=== PATIENT | male | born 1955 | race Two or more races ===

== ENCOUNTER 2019-09-30 00:52 | Emergency (ER) | payer MEDICARE, OTHER ==
[~2019-09-30] VITALS: Ht 170.2 cm
--- NOTE | 2019-09-30 01:05 | NUR ---
PT [id number] FROM [facility] FOR [facility]YCH PER EMS. PT C/O R WRIST PAIN. REDNESS. PT AAOX4, VSS, BREATHING EVEN AND UNLABORED ON RA W/ NAD NOTE. PT CONNECTED TO THE MONITOR AND POX.
[2019-09-30] MEDS ORDERED: diphenhydrAMINE HCL 25 MG CAPSULE PO ONE (01:30)
[2019-09-30] MEDS ORDERED: predniSONE 50 MG TABLET PO ONE (01:30)
[2019-09-30] MEDS ORDERED: predniSONE 20 MG TABLET ONE (01:43)
[2019-09-30] MEDS ORDERED: diphenhydrAMINE HCL 25 MG CAPSULE ONE (01:43)
--- NOTE | 2019-09-30 02:33 | NUR ---
CALLED [facility] FOR S TRANSPORT TO [facility] [id number] ETA TRIP # [id number]
--- NOTE | 2019-09-30 03:29 | NUR ---
REPORT GIVEN TO [facility]
--- NOTE | 2019-09-30 03:33 | NUR ---
REPORT GIVEN TO EMS. PT STABLE FOR TRANSFER
[2019-09-30 03:34] VITALS: BP 116/74
== END 2019-09-30 03:34 ==
LOC: ER 00:58
DX: R21 Rash and other nonspecific skin eruption (principal); G20 Parkinson's disease; I10 Essential (primary) hypertension; K21.9 Gastro-esophageal reflux disease without esophagitis
CPT/HCPCS: 99285; J7512; Q0163